=== PATIENT | female | born 1990 | race Caucasian/White ===

== ENCOUNTER 2017-04-25 12:55 | Emergency (ER) | payer MEDICAID ==
[~2017-04-25] VITALS: Ht 175.3 cm; Wt 100.0 kg
[~2017-04-25 12:55] MED LIST: IBUP600 PO; PERI8.6T PO; PREN0.01 PO; VARE1PAK3 PO
[2017-04-25 12:58] VITALS: BP 114/56; PULSE 86; RESP 16; TEMP 98.4; O2SAT 98
[2017-04-25] MEDS ORDERED: ERYTHROMYCIN 0.5% OPTH OINT 3.5 GM TUBO RIGHT EYE ONE (13:15)
[2017-04-25] MEDS ORDERED: ERYTOIN10 RIGHT EYE (13:19)
--- NOTE | 2017-04-25 13:22 | PD ---
HPI Chief Complaint: Eye Problems/Injury Time Seen by Provider: 13:01 Travel History International Travel<30 days: No Contact w/Intl Traveler<30days: No Traveled to known affect area: No History of Present Illness HPI 26-year-old occasional female presents the emergency Department with several day history of right lower eyelid swelling and erythema with crusty drainage. She states she has had similar symptoms several times over the past several months. She denies eye pain or injury. She has no changes in her vision. She has no other constitutional symptoms at this time. His no known drug allergies. Patient does not wear glasses or contacts. PFSH Past Medical History Depression: Yes (SINCE AGE 6) Cancer: No Diabetes: No Diminished Hearing: No Psychiatric: Yes (BEEN AT [facility]ANY TIMES) Immunizations Current: Yes Seizures: No Thyroid Disease: No Ulcer: No ?: Not LMP: 04/09/17 Menopausal: Yes : 1 Para: 1 Past Surgical History Other Surgery: Yes (TONSILECTOMY - AGE 4) Social History Alcohol Use: No Tobacco Use: No Substance Use: No Allergies-Medications (Allergen,Severity, Reaction): Coded Allergies: No Known Allergies (Unverified Adverse Reaction, Unknown, 04/25/17) Reported Meds & Prescriptions Reported Meds & Active Scripts Active Erythromycin Opth Oint 5 Mg/Gm Oint 1 Applic RIGHT EYE BID Chantix Starter Month Pack (Varenicline) Inderjit 0 PO SEE INSTRUCTIONS TAKE 0.5 MG ONCE DAILY ON DAYS 1-3, THEN 0.5 MG TWICE DAILY ON DAYS 4-7 THEN 1 MG TWICE DAILY. Humaira-Colace 8.6-50 mg (Sennosides-Docusate Sodium) 1 Tab Tab 2 Tab PO Q12H PRN Motrin 600 Mg Tab (Ibuprofen) 600 Mg Tab 600 Mg PO Q6H PRN Reported Vit ( Plus) (Prenat Multivit/[place]/Iron/Folic Ac) Tab 1 Tab PO DAILY Review of Systems Except as stated in HPI: all other systems reviewed are Neg General / Constitutional: No: Fever Eyes: Positive: Drainage, Redness, Pain, No: Diploplia, Blurred Vision, Photophobia, Foreign Body Sensation, Tearing, Blind Spots, Visual changes, Blindness HENT: No: Headaches Cardiovascular: No: Chest Pain or Discomfort Respiratory: No: Shortness of Breath Gastrointestinal: No: Abdominal Pain Genitourinary: No: Dysuria Musculoskeletal: No: Pain Skin: No Rash Neurologic: No: Weakness Psychiatric: No: Depression Endocrine: No: Polydipsia Hematologic/Lymphatic: No: Easy Bruising Physical Exam Narrative GENERAL: Patient appears in no obvious distress SKIN: Warm and dry. Normal color. Normal turgor. HEAD: Atraumatic. Normocephalic. EYES: Pupils equal and round. No scleral icterus. The patient has mild swelling and erythema to the right medial lower eyelid with obvious stye noted. No expressible pus. Conjunctiva is not significantly erythematous over the sclera. He is clear. ENT: No nasal bleeding or discharge. Mucous membranes pink and moist. TMs are clear bilaterally. Pharynx is clear. Airway is patent. NECK: Trachea midline. Supple and nontender. CARDIOVASCULAR: Regular rate and rhythm. RESPIRATORY: No accessory muscle use. Clear to auscultation. Breath sounds equal bilaterally. MUSCULOSKELETAL: Extremities without clubbing, cyanosis, or edema. No obvious deformities. NEUROLOGICAL: Awake and alert. No obvious cranial nerve deficits. Motor grossly within normal limits. Five out of 5 muscle strength in the arms and legs. Normal speech. PSYCHIATRIC: Appropriate mood and affect; insight and judgment normal. Data Data Last Documented VS Vital Signs Date Time Temp Pulse Resp B/P (MAP) Pulse Ox O2 Delivery O2 Flow Rate FiO2 04/25/17 12:58 98.4 86 16 114/56 (75) 98 Room Air Orders Orders Erythromycin 0.5% Opth Oint (Ilotycin 0. (04/25/17 13:15) [facility] Medical Decision Making Medical Screen Exam Complete: Yes Emergency Medical Condition: Yes Differential Diagnosis Blepharitis. Stye. Conjunctivitis. Narrative Course Patient is given erythromycin ophthalmic ointment. Patient is to use his twice daily until clear. Recommend frequent warm compresses to the affected area. Recommend frequent handwashing as well. Follow-up with primary care physician or instructional support technician as needed. Diagnosis Primary Impression: Hordeolum internum right lower eyelid Referrals: [facility] Patient Instructions: General Instructions, Sigrid (ED) Additional Instructions: Patient is given erythromycin ophthalmic ointment. Patient is to use his twice daily until clear. Recommend frequent warm compresses to the affected area. Recommend frequent handwashing as well. Follow-up with primary care physician or instructional support technician as needed. Med/Other Pt SpecificInfo: Prescription(s) given Scripts Erythromycin Opth Oint (Erythromycin Opth Oint) 5 Mg/Gm Oint 1 APPLIC RIGHT EYE BID for Infection, #1 TUBE 1 Refill Prov: Christiano Cohn MD 04/25/17 Disposition: 01 DISCHARGE HOME Condition: Stable Melvin Francis Apr 25, 2017 13:22
== END 2017-04-25 13:38 | disposition home or self-care (01) ==
LOC: NEPD 12:55
DX: H00.022 Hordeolum internum right lower eyelid (principal)
CPT/HCPCS: 99283

== ENCOUNTER 2017-08-13 22:32 | Emergency (ER) | payer MEDICAID ==
[~2017-08-13] VITALS: Ht 175.3 cm; Wt 104.0 kg
[~2017-08-13 22:32] MED LIST changes: +ERYTOIN10 RIGHT EYE
[2017-08-13 22:38] VITALS: BP 118/57; PULSE 96; RESP 28; TEMP 98.4; O2SAT 99
[2017-08-13] MEDS ORDERED: SODIUM CHLORIDE 0.9% FLUSH 10 ML FLUSH IVF PRN (23:15)
--- NOTE | 2017-08-13 23:21 | PD ---
HPI Chief Complaint: Chest Pain Time Seen by Provider: 22:59 Travel History International Travel<30 days: No Contact w/Intl Traveler<30days: No Traveled to known affect area: No History of Present Illness HPI The patient is a 27-year-old female that complains of a pressure pain in the midsternal area beginning this morning which is constant and associated with some shortness of breath but she denies any nausea, diaphoresis or radiation of pain. She denies any fever or cough. She does smoke slightly less than 1 pack a day. She denies any history of heart disease or other major medical problems. She states there is no possibility of . The pain intensity is a 6/10. PFSH Past Medical History Depression: Yes (SINCE AGE 6) Cancer: No Cardiovascular Problems: No Diabetes: No Diminished Hearing: No Psychiatric: Yes (BEEN AT [facility]ANY TIMES) Immunizations Current: Yes Seizures: No Thyroid Disease: No Ulcer: No ?: Unknown LMP: 07/13/17 Menopausal: Yes : 1 Para: 1 Past Surgical History Other Surgery: Yes (TONSILECTOMY - AGE 4) Social History Alcohol Use: No Tobacco Use: No Substance Use: No Allergies-Medications (Allergen,Severity, Reaction): Coded Allergies: No Known Allergies (Unverified Adverse Reaction, Unknown, 04/25/17) Reported Meds & Prescriptions Reported Meds & Active Scripts Active Review of Systems Except as stated in HPI: all other systems reviewed are Neg Physical Exam Narrative GENERAL: The patient is alert, oriented 3 in no respiratory distress. Her vital signs show pulse of 96, respiratory rate of 28 and blood pressure 118/57. The rest of vital signs are normal. SKIN: Focused skin assessment warm/dry. No skin rash is present. HEAD: Atraumatic. Normocephalic. EYES: Pupils equal and round. No scleral icterus. No injection or drainage. ENT: No nasal bleeding or discharge. Mucous membranes pink and moist. NECK: Trachea midline. No JVD. CARDIOVASCULAR: Regular rate and rhythm. No murmur appreciated. I cannot reproduce the patient's pain by pressing on the chest wall. RESPIRATORY: No accessory muscle use. Clear to auscultation. Breath sounds equal bilaterally. GASTROINTESTINAL: Abdomen soft, non-tender, nondistended. Hepatic and splenic margins not palpable. No guarding or rebound is present. MUSCULOSKELETAL: No obvious deformities. No clubbing. No cyanosis. No edema. NEUROLOGICAL: Awake and alert. No obvious cranial nerve deficits. Motor grossly within normal limits. Normal speech. PSYCHIATRIC: Appropriate mood and affect; insight and judgment normal. Data Data Last Documented VS Vital Signs Date Time Temp Pulse Resp B/P (MAP) Pulse Ox O2 Delivery O2 Flow Rate FiO2 08/13/17 23:10 99 Room Air 08/13/17 22:38 98.4 96 28 118/57 (77) Orders Orders Electrocardiogram (08/13/17 23:05) Complete Blood Count With Diff (08/13/17 23:05) Comprehensive Metabolic Panel (08/13/17 23:05) D-Dimer (08/13/17 23:05) Magnesium (Mg) (08/13/17 23:05) Troponin I (08/13/17 23:05) Ecg Monitoring (08/13/17 23:05) Iv Access Insert/Monitor (08/13/17 23:05) Oximetry (08/13/17 23:05) Oxygen Administration (08/13/17 23:05) Sodium Chloride 0.9% Flush (Ns Flush) (08/13/17 23:15) Chest, Pa & Lat (08/13/17 23:05) Urinalysis - C+S If Indicated (08/13/17 23:17) Urine Culture (08/13/17 23:40) Labs Laboratory Tests Test 08/13/17 23:40 White Blood Count 12.3 TH/MM3 Red Blood Count 4.45 MIL/MM3 Hemoglobin 13.7 GM/DL Hematocrit 40.3 % Mean Corpuscular Volume 90.5 FL Mean Corpuscular Hemoglobin 30.8 PG Mean Corpuscular Hemoglobin Concent 34.0 % Red Cell Distribution Width 12.2 % Platelet Count 257 TH/MM3 Mean Platelet Volume 8.4 FL Neutrophils (%) (Auto) 65.7 % Lymphocytes (%) (Auto) 25.9 % Monocytes (%) (Auto) 4.2 % Eosinophils (%) (Auto) 3.4 % Basophils (%) (Auto) 0.8 % Neutrophils # (Auto) 8.1 TH/MM3 Lymphocytes # (Auto) 3.2 TH/MM3 Monocytes # (Auto) 0.5 TH/MM3 Eosinophils # (Auto) 0.4 TH/MM3 Basophils # (Auto) 0.1 TH/MM3 CBC Comment DIFF FINAL Differential Comment D-Dimer Quantitative (PE/DVT) 0.25 MG/L FEU Urine Color YELLOW Urine Turbidity CLEAR Urine pH 5.5 Urine Specific [place] 1.025 Urine Protein NEG mg/dL Urine Glucose (UA) NEG mg/dL Urine Ketones NEG mg/dL Urine Occult Blood TRACE Urine Nitrite NEG Urine Bilirubin NEG Urine Urobilinogen 0.2 MG/DL Urine Leukocyte Esterase SMALL Urine RBC 3-5 /hpf Urine WBC 25-49 /hpf Urine WBC Clumps FEW Urine Squamous Epithelial Cells 6-8 /hpf Urine Bacteria FEW /hpf Urine Trichomonas PRESENT Microscopic Urinalysis Comment CULTURE INDICATED Blood Urea Nitrogen 9 MG/DL Creatinine 0.63 MG/DL Random Glucose 117 MG/DL Total Protein 7.7 GM/DL Albumin 3.8 GM/DL Calcium Level 8.8 MG/DL Magnesium Level 2.0 MG/DL Alkaline Phosphatase 60 U/L Aspartate Amino Transf (AST/SGOT) 12 U/L Alanine Aminotransferase (ALT/SGPT) 30 U/L Total Bilirubin LESS THAN 0.1 MG/DL Sodium Level 138 MEQ/L Potassium Level 3.5 MEQ/L Chloride Level 107 MEQ/L Carbon Dioxide Level 25.2 MEQ/L Anion Gap 6 MEQ/L Estimat Glomerular Filtration Rate 113 ML/MIN Troponin I LESS THAN 0.02 NG/ML MDM Medical Decision Making Medical Screen Exam Complete: Yes Emergency Medical Condition: Yes Medical Record Reviewed: Yes Interpretation(s) The CBC is normal except for a white count of 12,300. The complete metabolic profile is normal. The troponin I is less than 0.02. The d-dimer is normal at 0.25. The chest x-ray is normal and the EKG is normal with sinus rhythm rate of 91. Differential Diagnosis Pneumonia, pneumothorax, acute coronary syndrome-unlikely, pulmonary embolus, pleuritic pain, esophageal pain, gastrointestinal pain, chest pain etiology undetermined Narrative Course The patient has chest pain of unknown etiology. There is no evidence for heart or significant lung problems. The patient should take ibuprofen 400-600 mg 3 times daily to see if this helps her pain. She should follow-up with a primary care physician. Diagnosis Primary Impression: Chest pain of uncertain etiology Additional Instructions: Usually ibuprofen 400-600 mg 3 times daily will reduce this pain. Follow-up with a primary care physician, hopefully next week. Disposition: 01 DISCHARGE HOME Condition: Stable Jose Agustin MD Aug 13, 2017 23:21
--- NOTE | 2017-08-13 23:42 | RADRPT ---
EXAM DATE/TIME: 08/13/2017 23:22 [place] COMPARISON: No previous studies available for comparison. INDICATIONS : Right sided chest pressure for 12 hours MEDICAL HISTORY : None. SURGICAL HISTORY : None. ENCOUNTER: Initial ACUITY: 1 day PAIN SCORE: 0/10 LOCATION: Right chest FINDINGS: PA and lateral views of the chest demonstrate the lungs to be symmetrically aerated without evidence of mass, infiltrate or effusion. The cardiomediastinal contours are unremarkable. Osseous structure s are intact. CONCLUSION: Normal examination. Samir Grant Jr., MD on August 13, 2017 at 23:36 Board Certified Radiologist. This report was verified electronically.
[2017-08-13 23:48] LABS: BILIRUBIN, URINE NEG (NEG); BLOOD, URINE TRACE (NEG); GLUCOSE,URINE NEG (NEG); KETONE, URINE NEG (NEG); NITRITE,URINE NEG (NEG); PH, URINE 5.5 (5.0-8.5); URINE COLOR YELLOW (YELLW/STRAW); URINE LEUKOCYTE ESTERASE SMALL (NEG)
[2017-08-13 23:50] LABS: AUTOMATED NEUTROPHIL # 8.1 TH/MM3 (1.8-7.7); BASOPHIL # 0.1 TH/MM3 (0-0.2); BASOPHIL % 0.8 % (0.0-2.0); EOSINOPHIL # 0.4 TH/MM3 (0-0.4); EOSINOPHIL % 3.4 % (0.0-4.0); HEMATOCRIT 40.3 % (35.0-46.0); HEMOGLOBIN 13.7 GM/DL (11.6-15.3); LYMPH % 25.9 % (9.0-44.0); LYMPHOCYTE # 3.2 TH/MM3 (1.0-4.8); MEAN CELL VOLUME 90.5 FL (80.0-100.0); MEAN CORPUSCULAR HEMOGLOBIN 30.8 PG (27.0-34.0); MEAN PLATELET VOLUME 8.4 FL (7.0-11.0); MONO % 4.2 % (0.0-8.0); MONOCYTE # 0.5 TH/MM3 (0-0.9); NEUT % 65.7 % (16.0-70.0); PLATELET COUNT 257 TH/MM3 (150-450); RED BLOOD COUNT 4.45 MIL/MM3 (4.00-5.30); RED CELL DISTRIBUTION WIDTH 12.2 % (11.6-17.2); WHITE BLOOD COUNT 12.3 TH/MM3 (4.0-11.0)
[2017-08-13 23:56] LABS: CHLORIDE 107 MEQ/L (98-107); SODIUM (NA) 138 MEQ/L (136-145)
[2017-08-13 23:58] LABS: BACTERIA, URINE FEW /hpf; WHITE BLOOD CELL CLUMPS FEW
[2017-08-13 23:59] LABS: CALCIUM 8.8 MG/DL (8.5-10.1); TRICHOMONAS, URINE PRESENT
[2017-08-14] LABS: ALBUMIN 3.8 GM/DL (3.4-5.0); BICARBONATE 25.2 MEQ/L (21.0-32.0); BLOOD UREA NITROGEN 9 MG/DL (7-18); GLUCOSE,RANDOM 117 MG/DL (74-106)
[2017-08-14 00:03] LABS: ALT (GPT) 30 U/L (10-53); AST (GOT) 12 U/L (15-37); CREATININE 0.63 MG/DL (0.50-1.00); GLOMERULAR FILTRATION RATE 113 ML/MIN (>89)
[2017-08-14 00:05] LABS: TOTAL BILIRUBIN ADULT LESS THAN 0.1 MG/DL (0.2-1.0); TOTAL PROTEIN 7.7 GM/DL (6.4-8.2)
[2017-08-14 00:06] LABS: ALKALINE PHOSPHATASE 60 U/L (45-117)
[2017-08-14 00:09] LABS: TROPONIN I LESS THAN 0.02 NG/ML (0.02-0.05)
[2017-08-14] MEDS ORDERED: KETOROLAC TROMETHAMINE 60 MG/2 ML (IM) VIAL IVP ONE (00:45)
[2017-08-14 00:56] VITALS: BP 122/70
--- NOTE | 2017-08-15 09:06 | EKG ---
Date Performed: 08/13/2017 Time Performed: 23:31:05 PTAGE: 27 years EKG: Sinus rhythm NORMAL ECG NO PREVIOUS TRACING DOCTOR: Rick Ramey Interpretating Date/Time 08/15/2017 09:03:09
== END 2017-08-14 00:59 | disposition home or self-care (01) ==
LOC: PHED 22:32
DX: R07.9 Chest pain, unspecified (principal); R06.02 Shortness of breath; F32.9 Major depressive disorder, single episode, unspecified
CPT/HCPCS: 71046; 80053; 81001; 83735; 84484; 85025; 85379; 87086; 93005; 96374; 99285; J1885